=== PATIENT | female | born 1990 | race African-American/Black ===

== ENCOUNTER 2018-04-26 14:04 | Emergency (ER) | payer MEDICAID, OTHER ==
[~2018-04-26] VITALS: Ht 165.1 cm; Wt 75.0 kg
[~2018-04-26 14:04] MED LIST: FERR-43 PO; PREN-88 PO
[2018-04-26 14:30] VITALS: BP 133/83
[2018-04-26] MEDS ORDERED: TETANUS, DIPHTHERIA, PERTUSSIS VAC/PF 0.5ML (>7YR OLD) IM ONE (14:30)
[2018-04-26] MEDS ORDERED: SILVER SULFADIAZINE 1% CREAM 25GM TOP ONE (15:30)
[2018-04-26] MEDS ORDERED: ACETAMINOPHEN 325MG TABLET PO ONE (15:30)
== END 2018-04-26 15:49 | disposition home or self-care (01) ==
LOC: ER 14:04
DX: T21.21XA Burn of second degree of chest wall, initial encounter (principal); T24.222A Burn of second degree of left knee, initial encounter; T24.211A Burn of second degree of right thigh, initial encounter; T24.212A Burn of second degree of left thigh, initial encounter; T31.0 Burns involving less than 10% of body surface; R03.0 Elevated blood-pressure reading, without diagnosis of hypertension; T65.91XA Toxic effect of unspecified substance, accidental (unintentional), initial encounter; Y93.89 Activity, other specified; Y92.830 Public park as the place of occurrence of the external cause
CPT/HCPCS: 16020; 90471; 90715; 99283; 99284

== ENCOUNTER 2019-03-23 11:59 | Emergency (ER) | payer MEDICAID, OTHER ==
[~2019-03-23] VITALS: Ht 162.6 cm; Wt 72.0 kg
[2019-03-23] MEDS ORDERED: MORPHINE SULFATE 4 MG/ML CPJ (NOT FOR IM USE) IV STA (13:10)
[2019-03-23] MEDS ORDERED: SODIUM CHLORIDE 0.9% 1,000 ML IV ONE (13:10)
[2019-03-23] MEDS ORDERED: ONDANSETRON HCL 4MG/2ML INJ IV STA (13:10)
[2019-03-23 14:52] LABS: BASOPHILS % 0.5 % (0.0-2.0); EOSINOPHILS % 0.7 % (0.0-5.0); HEMATOCRIT. 41.9 % (36.0-48.0); MEAN CORPUSCULAR VOLUME 92.9 fL (81.0-99.0); MEAN PLATELET VOLUME 8.8 fl (7.4-10.4); MONOCYTES % 4.6 % (2.0-8.0); NEUTROPHILS % 81.2 % (40.0-76.0); PLATELET 273 x1000/uL (130-400); RED BLOOD CELL COUNT 4.51 mill/uL (4.2-5.4); RED CELL DISTRIBUTION WIDTH 14.8 % (11.6-14.6)
[2019-03-23 14:58] LABS: CHLORIDE 105 mEq/L (98-107)
[2019-03-23 15:00] LABS: INR 0.9; PARTIAL THROMBOPLASTIN TIME 25.6 sec (23.4-31.0); PROTHROMBIN TIME 9.4 sec (9.6-11.0)
[2019-03-23 15:04] LABS: HCG SCREEN NEGATIVE
[2019-03-23 17:51] VITALS: BP 124/83
== END 2019-03-23 17:52 | disposition home or self-care (01) ==
LOC: ER 12:23
DX: S09.90XA Unspecified injury of head, initial encounter (principal); S16.1XXA Strain of muscle, fascia and tendon at neck level, initial encounter; M54.5 Low back pain; M25.552 Pain in left hip; M54.12 Radiculopathy, cervical region; M25.512 Pain in left shoulder; F17.210 Nicotine dependence, cigarettes, uncomplicated; V43.53XA Car driver injured in collision with pick-up truck in traffic accident, initial encounter; Y93.89 Activity, other specified; Y92.014 Private driveway to single-family (private) house as the place of occurrence of the external cause
CPT/HCPCS: 36415; 70450; 71045; 72100; 72125; 73030; 73502; 80053; 81025; 84484; 84703; 85025; 85610; 85730; 93005; 96374; 96375; 99284; J2270; J2405; J7030; Z7610

== ENCOUNTER 2021-06-05 01:44 | Inpatient (IN) | payer MEDICAID, OTHER ==
[~2021-06-05] VITALS: Ht 170.2 cm; Wt 81.6 kg
[2021-06-05] MEDS: LACTATED RINGERS 1,000 ML IV PRN ×2 (02:55→05:00)
[2021-06-05] MEDS ORDERED: NALOXONE HCL 0.4 MG/ML 1ML VIAL IM PRN (03:15)
[2021-06-05 03:30] LABS: BASOPHILS % 0.6 % (0.0-2.0); EOSINOPHILS % 0.2 % (0.0-5.0); HEMATOCRIT. 29.8 % (36.0-48.0); HEMOGLOBIN. 9.9 g/dL (12.0-16.0); LYMPHOCYTES % 8.8 % (20.0-50.0); MEAN CORPUSCULAR HEMOGLOBIN 27.7 pg (28.0-32.0); MEAN CORPUSCULAR VOLUME 83.9 fL (81.0-99.0); MEAN PLATELET VOLUME 8.3 fl (7.4-10.4); MONOCYTES % 5.4 % (2.0-8.0); PLATELET 246 x1000/uL (130-400); RED BLOOD CELL COUNT 3.56 mill/uL (4.2-5.4); RED CELL DISTRIBUTION WIDTH 15.7 % (11.6-14.6)
[2021-06-05] MEDS ORDERED: DEXT 5%/LACTATED RINGERS 1,000 ML IV SCH (03:30)
[2021-06-05] MEDS ORDERED: LIDOCAINE HCL 1% 20ML VIAL (Pyxis) INJ INFIL SCH (03:30)
[2021-06-05] MEDS ORDERED: MISOPROSTOL 200MCG TABLET VG SCH (03:30)
[2021-06-05] MEDS ORDERED: AMPICILLIN 2GM in NS 100ML 100 ML IV NR (03:30)
[2021-06-05] MEDS ORDERED: DEXT 5%/LR + PITOCIN 20UNITS/L 1,000 ML IV SCH ×3 (03:30→08:45)
[2021-06-05 03:35] LABS: CHLORIDE 109 mEq/L (98-107)
[2021-06-05 03:39] LABS: INR 0.9; PARTIAL THROMBOPLASTIN TIME 23.6 sec (23.4-31.0); PROTHROMBIN TIME 9.5 sec (9.6-11.0)
[2021-06-05 04:02] LABS: CLARITY URINE CLEAR (CLEAR); COLOR URINE YELLOW (YELLOW); KETONES URINE NEGATIVE (NEGATIVE); LEUKOCYTE ESTERASE URINE NEGATIVE (NEGATIVE); NITRITE URINE NEGATIVE (NEGATIVE); OCCULT BLOOD URINE NEGATIVE (NEGATIVE); PROTEIN URINE NEGATIVE (NEGATIVE); SPECIFIC GRAVITY URINE 1.004 (1.005-1.030); UROBILINOGEN URINE 0.2 E.U./dL (0.2-1.0)
[2021-06-05 04:08] LABS: HEPATITIS B SURFACE ANTIGEN NEGATIVE
[2021-06-05 04:25] LABS: *BARBITURATES SCREEN URINE NEGATIVE (NEGATIVE)
[2021-06-05 04:26] LABS: *AMPHETAMINES SCREEN URINE NEGATIVE (NEGATIVE); *BENZODIAZEPINES SCREEN URINE NEGATIVE (NEGATIVE); METHADONE URINE SCREEN NEGATIVE (NEGATIVE); OPIATES URINE SCREEN NEGATIVE (NEGATIVE); PHENCYCLIDINE URINE SCREEN NEGATIVE (NEGATIVE)
[2021-06-05 04:27] LABS: CANNABINOID URINE SCREEN NEGATIVE (NEGATIVE)
[2021-06-05 04:32] LABS: *COCAINE SCREEN URINE PRESUMTIVE POSITIVE (NEGATIVE)
[2021-06-05] MEDS ORDERED: ROPIVACAINE HCL/PF EPIDURAL 200 ML EPI PRN (05:30)
[2021-06-05] MEDS ORDERED: HEMORRHOIDAL SUPP PR PRN (08:45)
[2021-06-05] MEDS ORDERED: GLYCERIN/WITCH HAZEL LEAF MEDICATED PAD TOP PRN (08:45)
[2021-06-05] MEDS ORDERED: IBUPROFEN 400MG TABLET PO PRN (08:45)
[2021-06-05] MEDS ORDERED: ACETAMINOPHEN WITH CODEINE 300/30MG TABLET PO PRN (08:45)
[2021-06-05] MEDS ORDERED: DIPHENHYDRAMINE 25MG CAPSULE PO PRN (08:45)
[2021-06-05] MEDS ORDERED: BISACODYL 10MG SUPP PR PRN (08:45)
[2021-06-05 10:00] VITALS: BP 117/64
[2021-06-05] MEDS ORDERED: AMPICILLIN 1,000 MG in SODIUM CHLORIDE 0.9% 50 ML IV SCH (10:00)
[2021-06-05] MEDS: IBUPROFEN 800MG TABLET PO PRN ×2 (10:27→17:40)
[2021-06-05 11:00] VITALS: BP 116/65
[2021-06-05 16:23] VITALS: BP 110/60
[2021-06-05 19:50] VITALS: BP 100/43
[2021-06-05] MEDS: DOCUSATE SODIUM 100MG CAPSULE PO SCH (21:02)
[2021-06-06] MEDS: IBUPROFEN 800MG TABLET PO PRN ×4 (01:12→23:08)
[2021-06-06 04:00] VITALS: BP 102/50
[2021-06-06 05:58] LABS: BASOPHILS % 0.1 % (0.0-2.0); EOSINOPHILS % 0.6 % (0.0-5.0); HEMATOCRIT. 25.8 % (36.0-48.0); HEMOGLOBIN. 8.5 g/dL (12.0-16.0); LYMPHOCYTES % 12.7 % (20.0-50.0); MEAN CORPUSCULAR HEMOGLOBIN 27.5 pg (28.0-32.0); MEAN CORPUSCULAR VOLUME 83.7 fL (81.0-99.0); MEAN PLATELET VOLUME 7.5 fl (7.4-10.4); NEUTROPHILS % 80.6 % (40.0-76.0); PLATELET 228 x1000/uL (130-400); RED BLOOD CELL COUNT 3.09 mill/uL (4.2-5.4); RED CELL DISTRIBUTION WIDTH 15.7 % (11.6-14.6)
[2021-06-06] MEDS: FERROUS SULFATE 325MG TABLET PO SCH ×3 (07:30→16:40)
[2021-06-06 08:00] VITALS: BP 100/54
[2021-06-06] MEDS: PRENATAL VIT/FE FUMARATE/FA TABLET PO SCH (12:53)
[2021-06-06 15:09] VITALS: BP 124/57
[2021-06-06 19:30] VITALS: BP 98/44
[2021-06-06] MEDS: DOCUSATE SODIUM 100MG CAPSULE PO SCH (21:01)
[2021-06-07 04:00] VITALS: BP 100/54
[2021-06-07] MEDS ORDERED: IBUP-2028 PO (04:44)
[2021-06-07 07:25] LABS: BASOPHILS % 0.1 % (0.0-2.0); EOSINOPHILS % 1.1 % (0.0-5.0); HEMATOCRIT. 26.2 % (36.0-48.0); HEMOGLOBIN. 8.5 g/dL (12.0-16.0); LYMPHOCYTES % 17.8 % (20.0-50.0); MEAN CORPUSCULAR HEMOGLOBIN 27.9 pg (28.0-32.0); MEAN CORPUSCULAR VOLUME 85.7 fL (81.0-99.0); MEAN PLATELET VOLUME 7.8 fl (7.4-10.4); MONOCYTES % 5.4 % (2.0-8.0); NEUTROPHILS % 75.6 % (40.0-76.0); PLATELET 234 x1000/uL (130-400); RED BLOOD CELL COUNT 3.06 mill/uL (4.2-5.4); RED CELL DISTRIBUTION WIDTH 16.4 % (11.6-14.6)
[2021-06-07 07:52] VITALS: BP 121/64
[2021-06-07] MEDS: FERROUS SULFATE 325MG TABLET PO SCH (08:22)
[2021-06-07] MEDS: PRENATAL VIT/FE FUMARATE/FA TABLET PO SCH (08:22)
[2021-06-07] MEDS: IBUPROFEN 800MG TABLET PO PRN (08:23)
[2021-06-11 04:09] LABS: COCAINE CONFIRMATION URINE Positive (.)
== END 2021-06-07 11:30 | disposition home or self-care (01) | DRG 560 ==
LOC: OBSVTOIN 01:44 → 8 EST LDRP 01:44 → 8EST 09:47
PROVIDERS: ADMIT Obstetrics & Gynecology; ATTEND Obstetrics & Gynecology
PROC: 10D07Z6 Extraction of Products of Conception, Vacuum, Via Natural or Artificial Opening (ICD-10-PCS; principal; 2021-06-05)
PROC: 3E0R3BZ Introduction of Anesthetic Agent into Spinal Canal, Percutaneous Approach (ICD-10-PCS; 2021-06-05)
PROC: 00HU33Z Insertion of Infusion Device into Spinal Canal, Percutaneous Approach (ICD-10-PCS; 2021-06-05)
DX: O99.324 Drug use complicating childbirth (principal); Z37.0 Single live birth; O99.12 Other diseases of the blood and blood-forming organs and certain disorders involving the immune mechanism complicating childbirth; O99.824 Streptococcus B carrier state complicating childbirth; O99.02 Anemia complicating childbirth; D64.9 Anemia, unspecified; F14.10 Cocaine abuse, uncomplicated; D72.829 Elevated white blood cell count, unspecified; Z20.822 Contact with and (suspected) exposure to COVID-19; Z3A.37 37 weeks gestation of pregnancy
CPT/HCPCS: 36415; 76805; 76818; 80053; 80305; 80353; 81003; 85025; 86592; 86703; 86762; 86850; 86900; 87340; 87426; 99281; J0290; J2590; J2795; J3490; A4315